=== PATIENT | female | born 1960 | race Caucasian/White ===

== ENCOUNTER 2025-02-23 13:12 | Emergency (ER) | payer MEDICARE, OTHER ==
[~2025-02-23] VITALS: Ht 167.6 cm; Wt 84.7 kg
[2025-02-23] MEDS ORDERED: LEVO112T2 PO (13:32)
[2025-02-23] MEDS ORDERED: LEVO88CA2 PO (13:33)
[2025-02-23] MEDS ORDERED: LEVO100C2 PO (13:33)
[2025-02-23 15:14] LABS: BASO # 0.1 10^3/uL (0.0-0.2); BASO % 1.3 % (0.0-1.0); EOS # 0.4 10^3/uL (0.0-0.5); EOS % 4.3 % (0.0-3.0); LYMPH # 2.8 10^3/uL (1.5-5.0); LYMPH % 34.2 % (24.0-44.0); MONO # 0.8 10^3/uL (0.0-0.8); MONO % 9.4 % (2.0-8.0); NEUTROPHILS # 4.1 10^3/uL (1.5-8.5); NEUTROPHILS % 50.2 % (36.0-66.0); PLATELET COUNT, AUTOMATED 422 10^3/uL (150-450)
[2025-02-23 15:55] LABS: C REACTIVE PROTEIN QUANTITATIV < 0.50 MG/DL (<1.0)
[2025-02-23 16:00] LABS: ALT/SGPT 68 U/L (7.0-40); AST/SGOT 67 U/L (<34); CALCIUM LEVEL 9.5 MG/DL (8.3-10.6); CARBON DIOXIDE LEVEL 27 MMOL/L (20-31); CHLORIDE LEVEL 100 MMOL/L (98-107); CREATININE FOR GFR 0.74 MG/DL (0.55-1.30); GLOMERULAR FILTRATION RATE 89.2 (>45); POTASSIUM SERUM 4.5 MMOL/L (3.5-5.1); SODIUM LEVEL 138 MMOL/L (136-145)
[2025-02-23] MEDS ORDERED: CEPH500C PO (16:11)
[2025-02-23] MEDS: CEPHALEXIN 500 MG CAP PO ONE (16:17)
[2025-02-23 17:00] VITALS: BP 173/91; TEMP 98; O2SAT 99
== END 2025-02-23 17:06 | disposition home or self-care (01) ==
LOC: M ED 13:12
DX: L73.9 Follicular disorder, unspecified (principal); F32.9 Major depressive disorder, single episode, unspecified; E03.9 Hypothyroidism, unspecified; Z79.890 Hormone replacement therapy; Z79.899 Other long term (current) drug therapy